=== PATIENT | female | born 1950 | race Caucasian/White ===

== ENCOUNTER → 2016-04-06 | Outpatient (CLI) | payer BC | LOC: US 12:56 | DX: R94.4 Abnormal results of kidney function studies (principal) ==

== ENCOUNTER → 2021-02-28 | Outpatient (CLI) | payer MEDICARE | LOC: EXRD 08:49 | DX: K76.0 Fatty (change of) liver, not elsewhere classified (principal); I47.9 Paroxysmal tachycardia, unspecified | CPT/HCPCS: 76700 ==

== ENCOUNTER → 2021-05-06 | Outpatient (CLI) | payer MEDICARE | LOC: HEART 5 13:14 | DX: M79.604 Pain in right leg (principal); M79.605 Pain in left leg; R60.0 Localized edema | CPT/HCPCS: 93925; 93970 ==

== ENCOUNTER → 2021-07-04 | Outpatient (CLI) | payer MEDICARE | LOC: RAD 14:39 | DX: M54.50 Low back pain, unspecified (principal); M25.551 Pain in right hip; M25.552 Pain in left hip; M47.816 Spondylosis without myelopathy or radiculopathy, lumbar region | CPT/HCPCS: 72110; 73522 ==

== ENCOUNTER → 2021-08-13 | Outpatient (CLI) | payer MEDICARE | LOC: KOH-I 08:53 | DX: M43.10 Spondylolisthesis, site unspecified (principal); M51.36 Other intervertebral disc degeneration, lumbar region | CPT/HCPCS: 72148 ==